=== PATIENT | male | born 1945 | race Caucasian/White ===

== ENCOUNTER 2017-04-04 21:19 | Emergency (ER) | payer OTHER ==
[~2017-04-04] VITALS: Ht 165.1 cm; Wt 50.3 kg
[~2017-04-04 21:19] MED LIST: CENTRUM MEN'S1 EACH PO; CLEAR EYES ITCH15 ML BOTH EYES; LOW DOSE ASPIRI81 M1 PO; METOPROLOL TART25 MG PO; OMEGA-3 KRILL1 EACH PO
[2017-04-05 00:28] LABS: MCH 34.9 PG (29.0-34.0); MCHC 34.1 G/DL (30.0-36.0); MCV 102.4 FL (86-99); MEAN PLAT.VOLUME 10.8 uM^3 (9.0-12.4); PLATELET COUNT 198 K/uL (156-360); RBC DIS.WIDTH-CV 12.3 % (11.8-14.6); RBC DIS.WIDTH-SD 46.9 % (39-53); RED BLOOD COUNT 3.81 M/uL (4.00-5.50); WHITE BLOOD COUNT 12.7 K/uL (4.1-10.2)
[2017-04-05 00:48] LABS: CHLORIDE 100 mEq/L (99-109); POTASSIUM 4.2 mEq/L (3.7-5.4); SODIUM 136 mEq/L (136-147)
[2017-04-05 00:49] LABS: GLUCOSE 121 mg/dL (70-99)
[2017-04-05 00:51] LABS: ANION GAP 11 MEQ/L (2-14)
[2017-04-05 00:53] LABS: GFR ESTIMATE (CALCULATED) > 59 mL/min/
[2017-04-05 00:54] LABS: UREA NITROGEN (BUN) 21 mg/dL (9-23)
[2017-04-05] MEDS ORDERED: STOOL SOFTENER250 MG PO (01:09)
[2017-04-05] MEDS ORDERED: NORCO 5/3251 TABLET PO (01:09)
[2017-04-05 01:34] VITALS: BP 119/93
[2017-04-11] MEDS ORDERED: NORCO 5/3251 TABLET PO (10:52)
[2017-04-11] MEDS ORDERED: LOPRESSOR25 MG PO (10:52)
== END 2017-04-05 01:34 | disposition home or self-care (01) ==
LOC: EXP 21:19 → EME 21:19 → EXP 04-05 01:34
PROVIDERS: Nurse Practitioner Family
PROC: 2W38X1Z Immobilization of Right Upper Extremity using Splint (ICD-10-PCS; principal; 2017-04-04)
DX: S42.414A Nondisplaced simple supracondylar fracture without intercondylar fracture of right humerus, initial encounter for closed fracture (principal); W01.0XXA Fall on same level from slipping, tripping and stumbling without subsequent striking against object, initial encounter; J44.9 Chronic obstructive pulmonary disease, unspecified; I10 Essential (primary) hypertension; F17.200 Nicotine dependence, unspecified, uncomplicated; Z79.82 Long term (current) use of aspirin
CPT/HCPCS: 73080; 80048; 85027; 86850; 86900; 86901; 93005; 99281; 99284

== ENCOUNTER 2017-04-12 10:47 | Inpatient (IN) | payer OTHER ==
[~2017-04-12] VITALS: Ht 165.1 cm; Wt 71.4 kg
[~2017-04-12 10:47] MED LIST changes: +LOPRESSOR25 MG PO; +NORCO 5/3251 TABLET PO; +STOOL SOFTENER250 MG PO
[2017-04-12 11:31] VITALS: BP 110/74
[2017-04-12 18:18] VITALS: BP 141/71
[2017-04-12 19:50] VITALS: BP 138/62
[2017-04-12 23:24] VITALS: BP 117/71
[2017-04-13 03:51] VITALS: BP 107/63
[2017-04-13 07:12] VITALS: BP 107/65
[2017-04-13 15:39] VITALS: BP 123/71
[2017-04-13 18:58] LABS: ANION GAP 8 MEQ/L (2-14); CHLORIDE 98 MEQ/L (99-109); GFR ESTIMATE (CALCULATED) > 59 mL/min/; GLUCOSE 118 mg/dL (70-99); POTASSIUM 3.8 MEQ/L (3.7-5.4); SAMPLE HEMOLYSIS CHECK 0; SAMPLE ICTERIC CHECK 0; SAMPLE LIPEMIA CHECK 0; SODIUM 134 MEQ/L (136-147); UREA NITROGEN (BUN) 11 mg/dL (9-23)
[2017-04-13 23:23] VITALS: BP 103/65
[2017-04-14] VITALS (11 sets, daily range): BP systolic 82–131; BP diastolic 50–81
[2017-04-14 09:42] LABS: HEMATOCRIT 26.2 % (38.0-50.0); MCV 103.1 FL (86-99); MEAN PLAT.VOLUME 9.7 uM^3 (9.0-12.4); PLATELET COUNT 296 K/uL (156-360); RBC DIS.WIDTH-CV 11.9 % (11.8-14.6); RBC DIS.WIDTH-SD 44.9 % (39-53); RED BLOOD COUNT 2.54 M/uL (4.00-5.50); WHITE BLOOD COUNT 10.3 K/uL (4.1-10.2)
[2017-04-14 09:48] LABS: CHLORIDE 105 mEq/L (99-109); POTASSIUM 3.9 mEq/L (3.7-5.4); SODIUM 137 mEq/L (136-147)
[2017-04-14 09:51] LABS: GLUCOSE 127 mg/dL (70-99)
[2017-04-14 09:52] LABS: ANION GAP 5 MEQ/L (2-14); TOTAL BILIRUBIN 0.3 mg/dL (0.0-1.0)
[2017-04-14 09:54] LABS: ALKALINE PHOSPHATASE 65 IU/L (3-129); GFR ESTIMATE (CALCULATED) > 59 mL/min/
[2017-04-14 09:55] LABS: UREA NITROGEN (BUN) 8 mg/dL (9-23)
[2017-04-14 10:00] LABS: TROP-I INTERPRETATION NEGATIVE; TROPONIN-I 0.14 ng/mL (0.0-0.30)
[2017-04-14 18:49] LABS: ADD MIUA? YES; BILIRUBIN NEGATIVE; BLOOD SMALL; COLOR YELLOW ((YELLOW)); GLUCOSE (STRIP) NEGATIVE; KETONES 5; LEUKOCYTES NEGATIVE; NITRITE NEGATIVE; PROTEIN (STRIP) 30; SPECIFIC GRAVITY 1.011 (1.000-1.030); UROBILINOGEN 0.2 MG/DL (0.2-1.0)
[2017-04-14 19:33] LABS: HEMATOCRIT 25.6 % (38.0-50.0); MCV 105.8 FL (86-99)
[2017-04-14 20:06] LABS: BACTERIA NONE SEEN /HPF; EPITHELIAL CELLS RARE /HPF; MUCUS TRACE /LPF; RED BLOOD CELLS 0-5 /HPF (0-5); UCUL ADDED? NO; WHITE BLOOD CELLS 0-5 /HPF (0-5)
[2017-04-15] VITALS (13 sets, daily range): BP systolic 91–130; BP diastolic 55–80
[2017-04-15 05:44] LABS: EOSINOPHIL (%) 1.6 % (0-5); EOSINOPHIL COUNT 0.2 K/uL (0-0.3); HEMATOCRIT 31.9 % (38.0-50.0); IMMATURE GRANULOCYTE (%) 0.6 % (0.0-0.7); IMMATURE GRANULOCYTE COUNT 0.1 K/uL; INSTRUMENT ABS NEUTROPHIL CT 7.5 K/uL; LYMPHOCYTE COUNT 1.6 K/uL (1.0-2.8); MCH 34.2 PG (29.0-34.0); MCHC 33.9 G/DL (30.0-36.0); MCV 100.9 FL (86-99); MEAN PLAT.VOLUME 10.1 uM^3 (9.0-12.4); MONOCYTE (%) 12.8 % (3-12); MONOCYTE COUNT 1.4 K/uL (0-0.8); NEUTROPHIL (%) 69.7 % (45-76); NEUTROPHIL COUNT 7.5 K/uL (1.8-6.4); PLATELET COUNT 292 K/uL (156-360); RBC DIS.WIDTH-SD 59.7 % (39-53); RED BLOOD COUNT 3.16 M/uL (4.00-5.50); WHITE BLOOD COUNT 10.8 K/uL (4.1-10.2)
[2017-04-15 05:58] LABS: ANION GAP 8 MEQ/L (2-14); CHLORIDE 106 MEQ/L (99-109); GFR ESTIMATE (CALCULATED) > 59 mL/min/; POTASSIUM 3.9 MEQ/L (3.7-5.4); SAMPLE HEMOLYSIS CHECK 0; SAMPLE ICTERIC CHECK 0; SAMPLE LIPEMIA CHECK 0; SODIUM 138 MEQ/L (136-147); UREA NITROGEN (BUN) 9 mg/dL (9-23)
[2017-04-15 05:59] LABS: GLUCOSE 84 mg/dL (70-99)
[2017-04-16 04:00] VITALS: BP 124/68
[2017-04-16 05:35] LABS: CHLORIDE 107 mEq/L (99-109); POTASSIUM 3.7 mEq/L (3.7-5.4); SODIUM 139 mEq/L (136-147)
[2017-04-16 05:36] LABS: GLUCOSE 87 mg/dL (70-99)
[2017-04-16 05:38] LABS: ANION GAP 8 MEQ/L (2-14)
[2017-04-16 05:40] LABS: GFR ESTIMATE (CALCULATED) > 59 mL/min/
[2017-04-16 05:41] LABS: UREA NITROGEN (BUN) 11 mg/dL (9-23)
[2017-04-16 05:47] LABS: EOSINOPHIL (%) 3.4 % (0-5); EOSINOPHIL COUNT 0.4 K/uL (0-0.3); HEMATOCRIT 32.3 % (38.0-50.0); IMMATURE GRANULOCYTE (%) 0.6 % (0.0-0.7); IMMATURE GRANULOCYTE COUNT 0.1 K/uL; INSTRUMENT ABS NEUTROPHIL CT 6.8 K/uL; LYMPHOCYTE COUNT 1.8 K/uL (1.0-2.8); MCH 32.9 PG (29.0-34.0); MCHC 33.7 G/DL (30.0-36.0); MCV 97.6 FL (86-99); MEAN PLAT.VOLUME 10.3 uM^3 (9.0-12.4); MONOCYTE (%) 11.5 % (3-12); MONOCYTE COUNT 1.2 K/uL (0-0.8); NEUTROPHIL (%) 66.6 % (45-76); NEUTROPHIL COUNT 6.8 K/uL (1.8-6.4); PLATELET COUNT 347 K/uL (156-360); RBC DIS.WIDTH-CV 15.1 % (11.8-14.6); RBC DIS.WIDTH-SD 54.7 % (39-53); RED BLOOD COUNT 3.31 M/uL (4.00-5.50); WHITE BLOOD COUNT 10.2 K/uL (4.1-10.2)
[2017-04-16 07:49] VITALS: BP 128/76
[2017-04-16 12:45] VITALS: BP 106/61
[2017-04-16] MEDS ORDERED: CORDARONE200 MG PO (12:53)
[2017-04-16] MEDS ORDERED: DILTIAZEM 24HR180 MG PO (12:53)
== END 2017-04-16 15:11 | disposition home or self-care (01) | DRG 493 ==
LOC: SDC 10:47 → 2SOUTH 16:30 → 3EAST 16:30 → 4EAST 16:30 → 2SOUTH 16:30 → ENRESERV 17:09 → 3EAST 18:00 → ENRESERV 04-14 09:39 → 4EAST 04-14 09:55
PROVIDERS: Hospitalist; Internal Medicine; Internal Medicine Cardiovascular Disease; Nurse Practitioner Family; Orthopaedic Surgery
PROC: 0PSF04Z Reposition Right Humeral Shaft with Internal Fixation Device, Open Approach (ICD-10-PCS; principal; 2017-04-12)
PROC: 30233N1 Transfusion of Nonautologous Red Blood Cells into Peripheral Vein, Percutaneous Approach (ICD-10-PCS; 2017-04-14)
DX: S42.411A Displaced simple supracondylar fracture without intercondylar fracture of right humerus, initial encounter for closed fracture (principal); W01.0XXA Fall on same level from slipping, tripping and stumbling without subsequent striking against object, initial encounter; F17.210 Nicotine dependence, cigarettes, uncomplicated; I47.1 Supraventricular tachycardia; D62 Acute posthemorrhagic anemia; I95.81 Postprocedural hypotension; I48.91 Unspecified atrial fibrillation; J44.9 Chronic obstructive pulmonary disease, unspecified; I45.10 Unspecified right bundle-branch block; I10 Essential (primary) hypertension; Y93.89 Activity, other specified; Y92.017 Garden or yard in single-family (private) house as the place of occurrence of the external cause
CPT/HCPCS: 71010; 71275; 73070; 76000; 80048; 80053; 81003; 82272; 83605; 84100; 84484; 85014; 85018; 85025; 85027; 86850; 86900; 86901; 86920; 87040; 87070; 87205; 93005; 94799; C1713; G0378; J0690; J1100; J1170; J3010; J7030; J7040; J7050; J7120; P9016

== ENCOUNTER 2018-02-04 18:29 | Emergency (ER) | payer OTHER ==
[~2018-02-04] VITALS: Ht 165.1 cm; Wt 50.1 kg
[~2018-02-04 18:29] MED LIST changes: +CORDARONE200 MG PO; +DILTIAZEM 24HR180 MG PO
[2018-02-04 21:00] LABS: BASOPHIL (%) 0.5 % (0-1); BASOPHIL COUNT 0.1 K/uL (0-0.1); EOSINOPHIL (%) 0.3 % (0-5); HEMATOCRIT 34.5 % (38.0-50.0); IMMATURE GRANULOCYTE (%) 0.6 % (0.0-0.7); LYMPHOCYTE (%) 6.8 % (15-42); MCH 35.4 PG (29.0-34.0); MCHC 34.8 G/DL (30.0-36.0); MCV 101.8 FL (86-99); MONOCYTE (%) 13.8 % (3-12); PLATELET COUNT 329 K/uL (156-360); RBC DIS.WIDTH-CV 11.3 % (11.8-14.6); RBC DIS.WIDTH-SD 42.2 % (39-53); RED BLOOD COUNT 3.39 M/uL (4.00-5.50); WHITE BLOOD COUNT 14.1 K/uL (4.1-10.2)
[2018-02-04 21:17] LABS: ALBUMIN 2.7 G/DL (3.2-4.8); CHLORIDE 97 MEQ/L (99-109); DIRECT BILIRUBIN 0.2 mg/dL (0.0-0.3); POTASSIUM 4.4 MEQ/L (3.7-5.4); SODIUM 134 MEQ/L (136-147); TOTAL BILIRUBIN 0.6 MG/DL (0.0-1.0)
[2018-02-04 21:23] LABS: ALKALINE PHOSPHATASE 70 IU/L (3-129); ALT (GPT) 8 IU/L (3-49); AST (GOT) 15 IU/L (2-34); CREATININE 0.7 MG/DL (0.6-1.3); GFR ESTIMATE (CALCULATED) > 59 mL/min/ (58.99-99999); GLUCOSE 112 mg/dL (70-99); LIPASE 43 U/L (1.0-51.0); TOTAL PROTEIN 6.6 G/DL (6.4-8.3); UREA NITROGEN (BUN) 24 mg/dL (9-23)
[2018-02-04 22:47] LABS: APPEARANCE SL.HAZY ((CLEAR)); BILIRUBIN NEGATIVE; BLOOD NEGATIVE; COLOR YELLOW ((YELLOW)); GLUCOSE (STRIP) NEGATIVE; KETONES 5; LEUKOCYTES NEGATIVE; NITRITE NEGATIVE; PROTEIN (STRIP) 100; SPECIFIC GRAVITY 1.021 (1.000-1.030); UROBILINOGEN 0.2 MG/DL (0.2-1.0)
[2018-02-04 22:53] LABS: BACTERIA RARE /HPF; EPITHELIAL CELLS RARE /HPF; MUCUS TRACE /LPF; WHITE BLOOD CELLS 0-5 /HPF (0-5)
[2018-02-04] MEDS ORDERED: VIBRAMYCIN100 MG PO (23:28)
[2018-02-04 23:59] VITALS: BP 115/85
== END 2018-02-04 23:59 | disposition home or self-care (01) ==
LOC: EME 18:29
PROVIDERS: Physician Assistant
DX: R60.0 Localized edema (principal); L03.115 Cellulitis of right lower limb; L03.116 Cellulitis of left lower limb; R10.11 Right upper quadrant pain; R68.81 Early satiety; I10 Essential (primary) hypertension; J43.9 Emphysema, unspecified; F17.200 Nicotine dependence, unspecified, uncomplicated; Z79.82 Long term (current) use of aspirin; Z87.19 Personal history of other diseases of the digestive system; Z87.442 Personal history of urinary calculi
CPT/HCPCS: 76705; 80048; 80076; 81003; 83690; 85025; 93970; 99281; 99284